=== PATIENT | female | born 1955 | race Caucasian/White ===

== ENCOUNTER → 2016-10-19 | Outpatient (REF) | payer OTHER | LOC: M LAB REF 17:34 | PROVIDERS: ATTEND Family Medicine | DX: Z12.4 Encounter for screening for malignant neoplasm of cervix (principal) ==

== ENCOUNTER → 2020-01-01 | Outpatient (CLI) | payer OTHER, MEDICARE ==
[~2020-01-01] MED LIST: CALC600T57 PO; MOBI4TAB PO; MULTCAP PO; PERC5TAB12 PO; TRAM50TA2 PO; XARE10TA PO
[2020-01-01 12:49] LABS: HEMATOCRIT 38.4 % (36.0-47.0); HEMOGLOBIN 12.1 g/dl (12.0-15.5); MEAN CORPUSCULAR HEMOGLOBIN 30.1 pg (27.0-33.0); MEAN CORPUSCULAR HGB CONC 31.5 g/dl (32.0-36.5); MEAN CORPUSCULAR VOLUME 95.5 fl (80.0-96.0); PLATELET COUNT, AUTOMATED 224 10^3/uL (150-450); RED BLOOD COUNT 4.02 10^6/uL (4.00-5.40); WHITE BLOOD COUNT 4.9 10^3/uL (4.0-10.0)
[2020-01-01 13:04] LABS: INR 1.01; PROTHROMBIN TIME 13.6 SECONDS (12.5-14.3)
[2020-01-01 13:21] LABS: ALBUMIN 3.4 GM/DL (3.2-5.2); ALT/SGPT 19 U/L (12-78); BILIRUBIN,TOTAL 0.2 MG/DL (0.2-1.0); BLOOD UREA NITROGEN 20 MG/DL (7-18); CALCIUM LEVEL 8.6 MG/DL (8.8-10.2); CARBON DIOXIDE LEVEL 31 MEQ/L (21-32); CHLORIDE LEVEL 107 MEQ/L (98-107); CREATININE FOR GFR 0.86 MG/DL (0.55-1.30); GLOMERULAR FILTRATION RATE > 60.0 (>45); GLUCOSE, FASTING 86 MG/DL (70-100); POTASSIUM SERUM 4.4 MEQ/L (3.5-5.1); SODIUM LEVEL 143 MEQ/L (136-145); TOTAL PROTEIN 6.2 GM/DL (6.4-8.2)
[2020-01-01 13:27] LABS: ERYTHROCYTE SEDIMENTATION RATE 9 mm/hr (0-30)
--- NOTE | 2020-01-04 09:24 | REP ---
CHEST X-RAY CLINICAL: Preoperative assessment for right arthroplasty. TECHNIQUE: PA and lateral. COMPARISON: None. FINDINGS: Mediastinum and cardiac silhouette normal. Lung solorio are clear. No focal consolidation, effusion, or pneumothorax. Skeletal structures are intact. IMPRESSION: Normal chest x-ray. No acute cardiopulmonary process or focal consolidation. MTDD
== END ==
LOC: M LAB 11:33
PROVIDERS: ATTEND Orthopaedic Surgery
DX: Z01.818 Encounter for other preprocedural examination (principal); M16.11 Unilateral primary osteoarthritis, right hip

== ENCOUNTER → 2020-01-11 | Outpatient (CLI) | payer OTHER, MEDICARE | LOC: M LABSMTC 09:55 | PROVIDERS: ATTEND Anesthesiology | DX: Z11.59 Encounter for screening for other viral diseases (principal) | CPT/HCPCS: C9803; U0003 ==

== ENCOUNTER 2020-01-16 06:09 | Inpatient (IN) | payer OTHER, MEDICARE ==
--- NOTE | 2020-01-15 07:12 | HPE ---
DATE OF ANTICIPATED ADMISSION: 01/16/2020 ATTENDING PHYSICIAN: Dr. Keshawn Mosqueda CHIEF COMPLAINT: Right hip pain and stiffness. HISTORY: Patient is a 64-year-old male who had progressively worsening right hip pain and stiffness. She failed to improve with conservative measures. She continues to have symptoms with weightbearing activities and activities of daily living. She consented for an elective right total hip arthroplasty with Dr. Mosqueda for her continued symptoms. Medical optimization completed with Jake LAUREANO and was reviewed during visit. CURRENT MEDICATIONS: - Mobic 15 mg daily - tizanidine 4 mg every 8 hours as needed - calcium with vitamin D 600/200 mg/units daily - vitamin D 1000 units daily - tramadol 50 mg one tablet by mouth four times daily ALLERGIES: There are no known drug allergies. CHRONIC MEDICAL CONDITIONS: 1. Low back pain. 2. Right hip pain. PAST SURGICAL HISTORY: None. SOCIAL HISTORY: Patient does not use tobacco and only uses alcohol occasionally. REVIEW OF SYSTEMS: Patient denies fever, chills, nausea, vomiting, or diarrhea. Denies chest pain, shortness of breath, lightheadedness, dizziness, or headaches. She denies any recent upper respiratory or urinary tract infection symptoms. She denies any abdominal pain. Patient does continue to have right hip pain with weightbearing activities and activities of daily living. PHYSICAL EXAMINATION: GENERAL: Well-nourished, well-developed female in no apparent distress. She is alert, oriented, and cooperative. Mood and affect are appropriate. VITAL SIGNS: Height 64.5 inches, weight 196.8 pounds, temperature 97.7, heart rate 65, respirations 12, blood pressure 124/72. NECK: Supple without lymphadenopathy. HEART: Regular rate and rhythm. LUNGS: Clear to auscultation bilaterally. Breathing is regular and nonlabored. MUSCULOSKELETAL: Right hip exhibits no gross abnormalities. She does have a lump favoring the right lower extremity. She is using a cane for ambulation. Patient has significantly limited motion of the hip. Strength is intact. Calf is soft and nontender without evidence of deep venous thrombosis (DVT). She is neurovascularly intact distally. LABORATORY DATA: Prothrombin time 13.6, INR 1.01. Fasting glucose 86, BUN elevated at 20, creatinine 0.86, GFR greater than 60, sodium 143, potassium 4.4, chloride 107, carbon dioxide 31, anion gap decreased at 5, calcium decreased at 8.6. ALT 19, AST 19, alkaline phosphatase 59, total bilirubin 0.2, total protein 6.4, albumin 3.4, albumin/globulin ratio 1.2. Complete blood count: WBC 4.9, RBC 4.02, hemoglobin 12.1, hematocrit 38.4, platelets 229, ESR 9. Right hip x-ray notable for end-stage degenerative changes. Chest x-ray normal without acute cardiopulmonary process or focal consolidation. IMPRESSION: Right hip osteoarthritis with x-rays notable for end-stage degenerative changes. PLAN: Patient has consented for an elective right total hip arthroplasty with Dr. Mosqueda for her continued symptoms. Medical optimization completed with Jake Billingsley PA-C. Patient will no nothing by mouth after midnight the night prior to surgery. She is using her Hibiclens and Bactroban as directed. Patient will follow her primary day care home provider's recommendations for taking daily medications. Edited: lacy 01/15/2020 0713 MTDD
[~2020-01-16] VITALS: Ht 167.6 cm; Wt 89.7 kg
[~2020-01-16 06:09] MED LIST changes: +LIDOCAINE 1% MDV 20ML VIAL SQ PRN; +LR 1,000 ML IV ONE; -PERC5TAB12 PO; -XARE10TA PO; +ceFAZolin SOD 2 GM in IV 1 EA IV ONE
[2020-01-16] MEDS ORDERED: TRANEXAMIC ACID 100 MG/ML 10ML VIAL As Ordered ONE (07:10)
[2020-01-16] MEDS ORDERED: EPINEPHrine INJ 1 MG/ML 1ML AMP As Ordered ONE (07:11)
[2020-01-16] MEDS ORDERED: propofoL 200 MG/20 ML VIAL As Ordered ONE ×2 (07:11→08:58)
[2020-01-16] MEDS ORDERED: ceFAZolin 1GM VIAL (J0690 PER 500MG) As Ordered ONE (07:11)
[2020-01-16] MEDS ORDERED: MIDAZOLAM INJ 2MG/2ML VIAL (J2250 PER 1MG) As Ordered ONE (07:11)
[2020-01-16] MEDS ORDERED: BUPIVACAINE LIPOSOME/PF 1.3% 20ML VIAL (13.3MG/ML)(EXPAREL)(C9290 PER1MG) As Ordered ONE (07:11)
[2020-01-16] MEDS ORDERED: fentaNYL 100 MCG/2 ML INJECTION (J3010) As Ordered ONE (07:12)
[2020-01-16] MEDS ORDERED: LIDOCAINE 2% 100MG/5ML SDV (FOR ANES.) As Ordered ONE (07:13)
[2020-01-16] MEDS ORDERED: PHENYLephrine HCL 500 MCG/5 ML (100MCG/ML) SYRINGE (J2370) As Ordered ONE (08:18)
[2020-01-16] MEDS ORDERED: ePHEDrine SULFATE 25 MG/5 ML(5MG/ML) SYRINGE As Ordered ONE (08:19)
[2020-01-16] MEDS ORDERED: dexameTHASONE 4 MG/ML 1ML VIAL (J1100 PER 1MG) As Ordered ONE (08:36)
[2020-01-16] MEDS ORDERED: ONDANSETRON 4MG/2ML VIAL As Ordered ONE (08:36)
[2020-01-16] MEDS ORDERED: KETOROLAC 60MG 2ML VIAL As Ordered ONE (08:36)
[2020-01-16] MEDS ORDERED: METOCLOPRAMIDE INJ 10MG/2ML VIAL (J2765 PER 1) IV PRN (09:45)
[2020-01-16] MEDS ORDERED: LR 1,000 ML IV SCH ×2 (09:45)
[2020-01-16] MEDS ORDERED: ONDANSETRON 4MG/2ML VIAL IV PRN ×2 (09:45)
[2020-01-16] MEDS ORDERED: MEPERIDINE INJ 25 MG/ML VIAL (J2175) IV PRN (09:45)
[2020-01-16] MEDS ORDERED: oxyCODONE 5MG TAB PO PRN (09:45)
[2020-01-16] MEDS ORDERED: fentaNYL 100 MCG/2 ML INJECTION (J3010) IV PRN (09:45)
--- NOTE | 2020-01-16 09:46 | REP ---
INDICATION: POST OP PLACEMENT. COMPARISON: No comparison study available.. TECHNIQUE: AP and cross-table lateral views. FINDINGS: Patient is status post right hip arthroplasty. Acetabular and femoral components are well aligned with respect to the alutiiq bones and each other. Lateral skin bryson are noted. Periarticular soft tissue emphysema is seen. IMPRESSION: Post right hip arthroplasty. <Electronically signed by Alex Harris > 01/16/20 0907
[2020-01-16] MEDS ORDERED: MORPHINE 4 MG/ML 1ML VIAL/SYRINGE (J2270) IV PRN (10:30)
[2020-01-16] MEDS ORDERED: ACETAMINOPHEN TAB 650MG DOSE (2X325MG) PO PRN (10:30)
--- NOTE | 2020-01-16 10:39 | IPN ---
DATE: 01/16/2020 SUBJECTIVE AND PLAN: Patient seen and examined. She wishes to go ahead with a right total hip arthroplasty. She is aware of the nature and the risks of bleeding, infection, damage to nerves and vessels, persistent pain, mora loosening, dislocation, leg length inequality, blood clots, medical problems, among others. She is somewhat short on the right side and she inquired about this. I explained that we do our best to try to gain that length back within the limits of her soft tissue tension. MTDGreer
[2020-01-16 11:00] VITALS: BP 113/65
[2020-01-16 11:45] VITALS: BP 116/67
[2020-01-16 12:45] VITALS: BP 118/72
--- NOTE | 2020-01-16 12:58 | RO ---
DATE OF OPERATION: 01/16/2020 PREOPERATIVE DIAGNOSIS: Right hip osteoarthritis. POSTOPERATIVE DIAGNOSIS: Right hip osteoarthritis. PROCEDURE: Right total hip arthroplasty using a Sigel size 7 standard plus 12 neck, 36 ball, and a 54 acetabular component. SURGEON: Keshawn Mosqueda MD DEVELOPMENT REP: MARK Warren ANESTHESIA: Spinal. ESTIMATED BLOOD LOSS: 300 mL. COMPLICATIONS: None. DESCRIPTION OF PROCEDURE: The patient was taken to the operating room and placed in the supine position after spinal anesthesia was induced, and then turned into the left lateral decubitus position on the [place] positioner. All areas were padded appropriately. The right hip was prepped and draped in the usual sterile fashion. A time-out was performed. A longitudinal incision was made over the lateral aspect of the hip and sharp dissection was carried down through the subcutaneous tissue. Controlled hemostasis with a cautery. She had copious subcutaneous tissue with significant obesity. I then identified the fascia irene and incised this longitudinally and then split the abductor, dividing the anterior 40% of the abductor off the anterior aspect of the hip, gradually exposing the hip. I was able to dislocate it fairly easily due to her relative shallow acetabulum. This was a fairly deep hole, it was challenging to work in, and she tended to bleed from just general ooze. I did every attempt to coagulate these with cautery. I then cleared out the acetabulum with a cautery and then, sequentially reamed up to a size 53, which had good concentric reaming and good bleeding bone, but it was obvious that there was a large anterior osteophyte. I then impacted in a 54 cup in the appropriate amount of anteversion horizontal tilt using a guide and made sure this was well-seated. It was a little uncovered posteriorly, as I expected it would be, and osteophyte anteriorly was removed with a rongeur and osteotome. I then placed the actual liner, impacted this in place, made sure it was well- seated, and then directed attention to the femur. I started with a canal initiating reamer, the canal finding reamer, the lateralizing reamer, and then broached up to a size 7 after I had reamed up to a 7, and this had good purchase. A good fit. I made the neck cut at about 3/4 fingerbreadth up from the lesser trochanter. I realized I did have some length to try to make up for her. I then trialed off the broach and used the standard offset, which seemed to be most appropriate for and trialed various different neck lengths and decided on a 12, as she was about 1 inch short preoperatively. This provided very good stability with minimal shuck in full extension, excellent stability in extension, external rotation, flexion, and internal rotation, and the soft tissue tension was appropriate. It was slightly tight, but I felt that it was appropriate given her leg length inequality. The actual stem was then inserted and impacted in place. The 36 plus 12 ball was then impacted in place and the hip was reduced. I had irrigated multiple times prior to this and again, irrigated now. I placed some TXA in the wound. Repaired the minimus with #1 Vicryl suture. I had put the hip through a range of motion and I was very pleased with the stability and overall excellent soft tissue tension. I repaired the abductor with #1 Vicryl suture, the fascia irene with #1 Vicryl suture and running STRATAFIX. The subcutaneous was closed with a second layer of STRATAFIX, due to the thickness of this and I was trying to close down some space. I then closed the subcutaneous with 2-0 Vicryl and the skin with bryson. Sterile dressing was applied. She was taken to the recovery room in stable condition. There were no known complications. Her leg lengths appeared to be grossly symmetric in the recovery room. The recovery assistant was instrumental in holding retractors, and assisting in reducing and dislocating the hip, and assisting in wound closure. This is coded as an unusually difficult procedure due to the fact that she had significant obesity with a significant large soft tissue envelope to work with. She had a shallow acetabulum that required a fair amount of deepening and osteophytes, which required removal. I did have to work on gaining leg length as well. Overall, this was a challenging procedure that added time. JOVANI
--- NOTE | 2020-01-16 13:23 | CR.PDOC ---
General Date of Consultation: Jan 16, 2020 Consultation Chief complaint: Presented to [facility] for an elective right hip arthroplasty History of present illness: Patient is a 64-year-old female with a past medical history of osteoarthritis who presented to [facility] for an elective total right hip arthroplasty. Patients primary care provider is Dr. Mcclelland who has provided medical clearance for this surgery. Patient is seen postoperatively after hospital service was called for medical management. Patient denies any headache, nausea, vomiting, chest pain, shortness of breath, palpitations, cough, abdominal pain, constipation, diarrhea, or urinary discomfort. They deny any recent fevers or chills. Past Medical History: Osteoarthritis Past Surgical History: Bunionectomy 2018 Dilation and curettage 2004 Allergies: See below Medications: See below Family History: - No history of malignancies Social History: - Denies the use of tobacco or illicit drugs; shell surely drinks alcohol - Denies recent travel or sick contacts - Lives with - Occupation; patient is a retired schoolteacher Review of Systems: 10 point review of systems complete, all negative otherwise stated in HPI Physical exam: - Vitals: BP [113/65], HR [54], RR [16], Sat [96%RA], Temp [97.0F] - General: Lying in bed, Speaking in full sentences, AAOx3 - HEENT: NC, AT, PERRLA - CVS: RRR, +S1S2 - Lungs: Fair air entry bilaterally, No appreciable wheezing / rales / rhonchi - Abdomen: Soft, Non-distended, Non-tender - Extremities: No lower extremity edema, No calf tenderness - Neuro: No focal motor or sensory deficit - Skin: No visible rashes Assessment and Plan: Elective total right hip arthroplasty (POD#0) - Presented to [facility] [place] for [place] orthopedic procedure - Has received outpatient medical clearance from her primary care provider - Pain control, anticoagulation and physical therapy. The direction of orthopedic surgery No significant past medical history DVT prophylaxis - As per primary orthopedic team Vital Signs/I&O Vital Signs Date Time Temp Pulse Resp B/P (MAP) Pulse Ox O2 Delivery O2 Flow Rate FiO2 01/16/20 11:00 97.0 54 16 113/65 (81) 96 Room Air 01/16/20 09:20 10 Allergies Coded Allergies: No Known Allergies (Unverified , 01/16/20) Home Medications Scheduled Calcium Carbonate/Vitamin D3 (Calcium 600-Vit D3 200 Tablet) 1 Each Tablet, 1 TAB PO DAILY for 30 Days, #30 (Reported) Meloxicam (Mobic) 7.5 Mg Tablet, 7.5 MG PO BID, #30 (Reported) WITH FOOD Multivitamin (Multivitamins) 1 Each Capsule, 1 CAP PO DAILY, #30 (Reported) Scheduled PRN Tramadol HCl (Tramadol HCl) 50 Mg Tablet, 50 MG PO Q6HP PRN for pain for 7 Days, #30 (Reported) ISHAN HERRERA MD Jan 16, 2020 13:23
[2020-01-16 13:45] VITALS: BP 124/65
[2020-01-16 14:23] LABS: BLOOD UREA NITROGEN 12 MG/DL (7-18); CALCIUM LEVEL 8.6 MG/DL (8.8-10.2); CARBON DIOXIDE LEVEL 30 MEQ/L (21-32); CHLORIDE LEVEL 107 MEQ/L (98-107); CREATININE FOR GFR 0.78 MG/DL (0.55-1.30); GLOMERULAR FILTRATION RATE > 60.0 (>45); GLUCOSE, FASTING 198 MG/DL (70-100); POTASSIUM SERUM 3.7 MEQ/L (3.5-5.1); SODIUM LEVEL 143 MEQ/L (136-145)
[2020-01-16 14:45] VITALS: BP 124/66
[2020-01-16] MEDS: PERCOCET 5MG/325MG TAB PO PRN ×2 (15:36→19:41)
[2020-01-16] MEDS: ceFAZolin SOD 2 GM in IV 1 EA IV SCH (17:47)
[2020-01-16 20:06] LABS: BLOOD UREA NITROGEN 14 MG/DL (7-18); CALCIUM LEVEL 8.5 MG/DL (8.8-10.2); CARBON DIOXIDE LEVEL 29 MEQ/L (21-32); CHLORIDE LEVEL 107 MEQ/L (98-107); CREATININE FOR GFR 0.82 MG/DL (0.55-1.30); GLOMERULAR FILTRATION RATE > 60.0 (>45); GLUCOSE, FASTING 175 MG/DL (70-100); SODIUM LEVEL 141 MEQ/L (136-145)
[2020-01-16] MEDS: MORPHINE 2 MG/ML 1ML VIAL (J2270) IV PRN (21:25)
[2020-01-16 22:00] VITALS: BP 123/68
[2020-01-17] MEDS: PERCOCET 5MG/325MG TAB PO PRN ×3 (01:12→09:51)
[2020-01-17] MEDS: ceFAZolin SOD 2 GM in IV 1 EA IV SCH (01:53)
[2020-01-17] MEDS: MORPHINE 2 MG/ML 1ML VIAL (J2270) IV PRN (01:56)
[2020-01-17 02:00] VITALS: BP 121/69
[2020-01-17 02:23] LABS: BLOOD UREA NITROGEN 16 MG/DL (7-18); CALCIUM LEVEL 8.2 MG/DL (8.8-10.2); CARBON DIOXIDE LEVEL 29 MEQ/L (21-32); CHLORIDE LEVEL 108 MEQ/L (98-107); CREATININE FOR GFR 0.71 MG/DL (0.55-1.30); GLOMERULAR FILTRATION RATE > 60.0 (>45); GLUCOSE, FASTING 130 MG/DL (70-100); POTASSIUM SERUM 4.1 MEQ/L (3.5-5.1); SODIUM LEVEL 142 MEQ/L (136-145)
[2020-01-17 05:50] LABS: HEMATOCRIT 28.5 % (36.0-47.0); HEMOGLOBIN 9.2 g/dl (12.0-15.5); MEAN CORPUSCULAR HGB CONC 32.3 g/dl (32.0-36.5); MEAN CORPUSCULAR VOLUME 92.8 fl (80.0-96.0); PLATELET COUNT, AUTOMATED 180 10^3/uL (150-450); RED BLOOD COUNT 3.07 10^6/uL (4.00-5.40); WHITE BLOOD COUNT 7.1 10^3/uL (4.0-10.0)
[2020-01-17 06:00] VITALS: BP 114/68
[2020-01-17 06:12] LABS: BLOOD UREA NITROGEN 15 MG/DL (7-18); CALCIUM LEVEL 8.2 MG/DL (8.8-10.2); CARBON DIOXIDE LEVEL 28 MEQ/L (21-32); CHLORIDE LEVEL 107 MEQ/L (98-107); CREATININE FOR GFR 0.82 MG/DL (0.55-1.30); GLOMERULAR FILTRATION RATE > 60.0 (>45); GLUCOSE, FASTING 130 MG/DL (70-100); POTASSIUM SERUM 3.8 MEQ/L (3.5-5.1); SODIUM LEVEL 140 MEQ/L (136-145)
[2020-01-17] MEDS ORDERED: PERC5TAB12 PO (06:26)
[2020-01-17] MEDS ORDERED: XARE10TA PO (06:28)
[2020-01-17] MEDS: MIRALAX *UNIT DOSE* 17GM PACKET PO SCH ×2 (08:40→09:48)
[2020-01-17] MEDS ORDERED: MOM 30ML SUSPENSION UDC PO SCH (09:00)
--- NOTE | 2020-01-17 09:19 | IPNPDOC ---
Text Note Date of Service The patient was seen on 01/17/20. NOTE Subjective: Patient is a 64-year-old female with a past medical history of osteoarthritis who presented to [facility] for an elective total right hip arthroplasty. Patients primary care provider is Dr. Mcclelland who has provided medical clearance for this surgery. Patient is seen postoperatively after hospital service was called for medical management. Patient was seen and examined at the bedside. Patient reports that she has been out of bed, moving around. Denies any chest pain, shortness breath or palpitations. Denies nausea, vomiting, abdominal pain or diarrhea. Denies any urinary discomfort. Objective: Vitals (See below) General: Lying in bed, appears comfortable, AAOx3 HEENT: NC, AT CVS: RRR, +S1S2 Lungs: Fair air entry b/l, -w/r/r Abdomen: Soft, ND, NT Extremities: R hip with dressing in place, - Edema, - Calf tenderness Assessment and plan: Elective total right hip arthroplasty (POD#1) - Presented to [facility] [place] for elective orthopedic procedure - Has received outpatient medical clearance from her primary care provider - Pain control, anticoagulation and physical therapy. The direction of orthopedic surgery No significant past medical history DVT prophylaxis - As per primary orthopedic team Disposition: - Anticipate DC once cleared by PT Casimiro SU, I+O VSCasimiro I+O Laboratory Tests 01/16/20 13:43 01/16/20 19:34 01/17/20 01:37 01/17/20 05:22 Vital Signs Date Time Temp Pulse Resp B/P (MAP) Pulse Ox O2 Delivery O2 Flow Rate FiO2 01/17/20 06:00 98.2 72 18 114/68 (83) 96 Room Air 01/16/20 09:20 10 I&O- Last 24 Hours up to 6 AM 01/17/20 06:00 Intake Total 2840 ml Output Total 1300 ml Balance 1540 ml ISHAN HERRERA MD Jan 17, 2020 09:19
[2020-01-17 10:00] VITALS: BP 126/74
[2020-01-17] MEDS ORDERED: RIVAROXABAN 10 MG TAB (XARELTO) PO SCH (18:00)
--- NOTE | 2020-01-19 13:48 | DS ---
DATE OF ADMISSION: 01/16/2020 DATE OF DISCHARGE: 01/17/2020 ATTENDING PHYSICIAN: Dr. Mosqueda. ADMITTING DIAGNOSIS: Right hip osteoarthritis. OTHER DIAGNOSIS: Low back pain. DISCHARGE DIAGNOSIS: Right hip pain status post right total hip arthroplasty. HISTORY: Patient is a 64-year-old female with progressively worsening right hip pain and stiffness. She failed to improve with conservative measures. She continued to have symptoms with weightbearing activities and activities of daily living. She consented for an elective right total hip arthroplasty with Dr. Mosqueda for her continued symptoms. OPERATION PERFORMED: Right total hip arthroplasty. HOSPITAL COURSE: The patient underwent a right total hip arthroplasty under spinal anesthesia which was uneventful. Her hospital course was without complication and she was up with physical therapy per their protocol weightbearing as tolerated on the right lower extremity. Patient was discharged on oral pain medications and will resume her pre-operative medications and diet. Patient will use her thromboembolic deterrent stockings and take her anticoagulant post-operatively to prevent deep venous thrombosis. Patient will follow up in our office in 12-14 days for wound check and staple removal. She is encouraged to contact our office sooner if there is any increase in pain, redness, drainage, numbness or tingling in the extremity, fever greater than 101 degrees or any other concerns. Please see medical records for additional details. JOVANI
== END 2020-01-17 12:30 | disposition home or self-care (01) | DRG 470 ==
LOC: M OR 06:09 → M MS5PR 10:55
PROVIDERS: ADMIT Orthopaedic Surgery; ATTEND Orthopaedic Surgery
PROC: 0SR904A Replacement of Right Hip Joint with Ceramic on Polyethylene Synthetic Substitute, Uncemented, Open Approach (ICD-10-PCS; principal; 2020-01-16 07:30)
DX: M16.11 Unilateral primary osteoarthritis, right hip (principal); Z79.899 Other long term (current) drug therapy

== ENCOUNTER → 2024-07-25 | Outpatient (CLI) | payer MEDICARE, OTHER ==
[~2024-07-25] MED LIST changes: -LIDOCAINE 1% MDV 20ML VIAL SQ PRN; -LR 1,000 ML IV ONE; +PERC5TAB12 PO; +XARE10TA PO; -ceFAZolin SOD 2 GM in IV 1 EA IV ONE
== END ==
LOC: M RAD 13:31
PROVIDERS: ATTEND Family Medicine
DX: M79.662 Pain in left lower leg (principal)

== ENCOUNTER → 2025-02-21 | Outpatient (REF) | payer MEDICARE, OTHER ==
[2025-02-21 17:35] LABS: APPEARANCE, URINE CLEAR (CLEAR); BACTERIA, URINE AUTO NEGATIVE (NEGATIVE); BILIRUBIN, URINE AUTO NEGATIVE (NEGATIVE); BLOOD, URINE BLOOD NEGATIVE (NEGATIVE); GLUCOSE, URINE (UA) AUTO NEGATIVE (NEGATIVE); KETONE, URINE AUTO NEGATIVE (NEGATIVE); LEUKOCYTE ESTERASE, URINE AUTO NEGATIVE (NEGATIVE); MUCUS, URINE SMALL (NEGATIVE); NITRITE, URINE AUTO NEGATIVE (NEGATIVE); PROTEIN, URINE AUTO NEGATIVE (NEGATIVE); RBC, URINE AUTO 0 /HPF (0-3); SPECIFIC GRAVITY URINE AUTO 1.021 (1.002-1.035); SQUAMOUS EPITHELIAL CELL UR AU 0 /HPF (0-6); UROBILINOGEN, URINE AUTO 0.2 mg/dL (0.0-2.0); WBC, URINE AUTO 1 /HPF (0-3)
[2025-02-21 18:02] LABS: TOTAL PROTEIN,RANDOM URINE < 6.0 MG/DL (0.0-14.0)
[2025-02-21 18:16] LABS: BASO # 0.0 10^3/uL (0.0-0.2); BASO % 0.6 % (0.0-1.0); EOS # 0.2 10^3/uL (0.0-0.5); EOS % 2.4 % (0.0-3.0); LYMPH # 2.8 10^3/uL (1.5-5.0); LYMPH % 45.2 % (24.0-44.0); MONO # 0.7 10^3/uL (0.0-0.8); MONO % 10.9 % (2.0-8.0); NEUTROPHILS # 2.5 10^3/uL (1.5-8.5); NEUTROPHILS % 40.7 % (36.0-66.0); PLATELET COUNT, AUTOMATED 253 10^3/uL (150-450)
[2025-02-21 18:19] LABS: C REACTIVE PROTEIN QUANTITATIV < 0.50 MG/DL (<1.0); COMPLEMENT C4 33.3 MG/DL (12-36)
[2025-02-21 18:20] LABS: ALT/SGPT 19 U/L (7.0-40); AST/SGOT 27 U/L (<34); CALCIUM LEVEL 9.1 MG/DL (8.3-10.6); CARBON DIOXIDE LEVEL 31 MMOL/L (20-31); CHLORIDE LEVEL 106 MMOL/L (98-107); CREATININE FOR GFR 0.66 MG/DL (0.55-1.30); GLOMERULAR FILTRATION RATE > 90.0 (>39); POTASSIUM SERUM 4.0 MMOL/L (3.5-5.1); SODIUM LEVEL 146 MMOL/L (136-145)
== END ==
LOC: M SFHCRHEU 14:54
PROVIDERS: ATTEND Internal Medicine Rheumatology
DX: R76.89 Other specified abnormal immunological findings in serum (principal); Z79.899 Other long term (current) drug therapy

== ENCOUNTER → 2025-03-06 | Outpatient (REF) | payer MEDICARE, OTHER | LOC: M SFHCRHEU 09:06 | PROVIDERS: ATTEND Internal Medicine | DX: R76.89 Other specified abnormal immunological findings in serum (principal) ==